=== PATIENT | male | born 1955 | race Caucasian/White ===

== ENCOUNTER 2016-09-24 14:32 | Inpatient (IN) ==
[2016-09-24] MEDS ORDERED: methylPREDNISolone 125 MG/2 ML VIAL IVP ONE (15:00)
[2016-09-24] MEDS ORDERED: Ipratropium/Albuterol Neb 3 ML IH ONE (15:00)
[2016-09-24] MEDS ORDERED: 0.9 % Sodium Chloride 1,000 ML IVC ONE (15:00)
--- NOTE | 2016-09-24 15:03 | Emergency Department Note ---
Disposition Clinical Impression: Acute exacerbation of chronic obstructive airways disease, Fngqr-7-[id number] deficiency, Lactic acidosis Disposition: Home, Self-Care Condition: Fair Time of Disposition: 17:50 SOB HPI - General Chief Complaint: ED Shortness of Breath/Dyspnea Stated Complaint: LEONEL Time Seen by Provider: 09/24/16 14:49 Source: patient Limitations: no limitations Nursing Notes Reviewed: Yes Vital Signs Reviewed: Yes - History of Present Illness 60-year-old male with history of alpha-1 antitrypsin, COPD, oxygen at night and BiPAP for MOE, patient reports shortness of breath, hemoptysis yesterday. Patient said shortness of breath so she with diaphoresis, chest pain, it is felt feverish though his only had subjective fevers at home. Patient states that he has had episodes of bronchitis like this in the past. He was seen a year ago with similar symptoms, admitted for pneumonia. Patient denies diuretics or CHF. Pt Subjective Complaint: shortness of breath Onset (ago): day(s) (1) Context: recent illness Severity: mild Improves with: nothing Worsens with: nothing Known history of: COPD, other (Alpha 1 antitrypsin) Associated symptoms: Reports: chest pain, pain with inspiration, fever, cough, wheezing, sputum production, diaphoresis. Denies: nausea/vomiting Treatment prior to arrival: none, oxygen Cough present: Yes Cough Description: Voluntary Cough Frequency: Intermittent Sputum production: Yes Sputum Amount: Scant Sputum Color: Clear - Related Data Home Medications Medication Instructions Recorded Confirmed Albuterol Sulfate [Proair 2 puff IH Q4H PRN 10/05/15 09/24/16 Respiclick] Miuea-4-Dqqswlvkmq Inhibitor 0 mg IV QWEEK 10/05/15 09/24/16 [Aralast Mdm Sr] Aspirin [Adult Low Dose Aspirin EC] 81 mg PO QAM 10/05/15 09/24/16 CloNIDine HCl [Clonidine HCl] 0.2 mg PO QPM 10/05/15 09/24/16 Furosemide [Lasix] 20 mg PO QAM 10/05/15 09/24/16 Insulin DETEMIR [Levemir] 54 unit SQ QPM 10/05/15 09/24/16 Ipratropium/Albuterol Neb [Duoneb] 3 ml IH Q6HR PRN 10/05/15 09/24/16 Labetalol [Trandate] 100 mg PO BID 10/05/15 09/24/16 Losartan/Hydrochlorothiazide 1 each PO QPM 10/05/15 09/24/16 [Hyzaar 100-12.5 Tablet] Nitroglycerin 0.3 mg SL AD PRN 10/05/15 09/24/16 Pravastatin Sodium [Pravachol] 80 mg PO QPM 10/05/15 09/24/16 Tiotropium [Spiriva] 18 mcg IH QAM 10/05/15 09/24/16 GlyBURIDE 5 mg PO DAILY 09/24/16 09/24/16 Sitagliptin Phos/Metformin HCl 1 each PO BID 09/24/16 09/24/16 [Janumet 50-1,000 mg Tablet] Previous Rx's Medication Instructions Recorded Budesonide/Formoterol 160/4.5 2 puff IH BIDR #1 inhaler 10/08/15 [Symbicort 160/4.5] PredniSONE 5 mg PO QAM #0 10/08/15 Albuterol Neb [Proventil Neb] 2.5 mg IH Q4HR PRN #1 vial.neb 11/14/15 Allergies Allergy/AdvReac Type Severity Reaction Status Date / Time morphine AdvReac Vomiting Verified 10/05/15 18:08 Review of Systems: A 14 point ROS was obtained and was negative except as per below or as documented in the HPI. Constitutional: Denies: fever, chills, weakness, weight change Eyes: Denies: eye pain, eye discharge, vision change ENT: Denies: ear pain, throat pain, hearing loss, epistaxis, congestion, Cardiovascular: Denies: chest pain, palpitations, dyspnea on exertion, edema, syncope Respiratory: cough, dyspnea, wheezes Denies: , hemoptysis, stridor Gastrointestinal: Denies: abdominal pain, nausea, vomiting. diarrhea, constipation, hematemesis, hematochezia Genitourinary: Denies: urgency, dysuria, frequency, hematuria Musculoskeletal: Denies: back pain, neck pain, arthralgia, myalgia Integumentary: Denies: rash, abrasion, lesions Neurological: Denies: headache, weakness, numbness, paresthesias, confusion, abnormal gait Psychiatric: Denies: anxiety, depression, suicidal thoughts, homicidal thoughts , Endocrine: Denies: fatigue Hematological/Lymphatic: Denies: easy bleeding, easy bruising Allergic/Immunologic: Denies: facial swelling, urticaria All systems ED: reviewed and negative except as stated. Past Medical History - Past Medical History Attestation: Yes The following information was validated with the patient. Source: patient Medical history: Reports: COPD, diabetes, hyperlipidemia, hypertension Surgical history: Reports: cancer surgery (Prostate cancer surgery 2001) Psychiatric history: Reports: no psych history - Social History Smoking Status: Former smoker Smokeless Tobacco Status: No Alcohol use: Reports: none Drug use: Reports: none Physical Exam General: diaphoretic in mild respiratory distress Head: NCAT, no lesions Eyes: sclera anicteric, conjunctiva normal, PERRLA bilaterally, EOMI Bilaterally Ears: normal inspection, external ear wnl Nose: nasal septum nondeviated, sinuses nontender Throat: good dentition, mucous membranes moist Neck: no lymphadenopathy, trachea midline no deviation, no JVD Resp: Coarse lung sounds present bilaterally, bilateral inspiratory expiratory wheezes and rales at the bases CV: RRR, normal S1 and S2, no m/g/r, Pulses +2 Rad, +2 DP/PT Abdomen: Soft, NTND, no hepatosplenomegaly, no hernias, Negative Rovsing's sign , Negative Weiss's sign Back: normal inspection, no tenderness to palpation, Negative CVA tenderness bilaterally Neuro: A&O3, CN II-XII grossly intact bilaterally, no motor or sensory deficits bilaterally, gait normal, GCS 15 [id number] Ext: normal inspection, symmetric Active and Passive ROM UE and LE bilaterally , no pedal edema bilaterally Psych: normal mood, normal affect Skin: No rashes, skin warm, dry, intact - General Limitations: no limitations General appearance: alert, in no apparent distress Course Course Narrative: 60-year-old male history of alpha trypsin, we have breathing treatments 23 Solu -Medrol, check basic labs with lactated blood cultures, troponin EKG was reviewed unremarkable no changes from previous EKG, planted his CT chest given hemoptysis, although patient does have any other risk factors for PE - Reevaluation(s) Reevaluation #1: Patient improved after DuoNeb's, still satting 93% with 2 L nasal cannula, lungs with some coarse wheezes bilaterally still, lactate 2.8, no evidence of infection at this time we will admit for COPD exacerbation, and trending of lactate, admitted to medicine service in stable condition Time: 17:49 Vital Signs Temperature 98.1 F 09/24/16 14:33 Pulse Rate 86 09/24/16 14:33 Respiratory Rate 20 09/24/16 14:33 Blood Pressure 185/98 09/24/16 14:33 O2 Sat by Pulse Oximetry 92 L 09/24/16 14:33 Temperature 98.3 F 09/24/16 18:27 Pulse Rate 73 09/24/16 17:56 Respiratory Rate 18 09/24/16 18:27 Blood Pressure 154/70 09/24/16 18:27 O2 Sat by Pulse Oximetry 95 09/24/16 17:56 Oxygen Delivery Oxygen Delivery Nasal Cannula Shortness of Breath/Dyspnea - MDM Narrative Medical decision making narrative: 60-year-old male with alpha-1 antitrypsin deficiency, COPD exacerbation, lactic acidosis, admitted to medicine service in stable condition. - Differential Diagnosis Likely: acute exacerbation of chronic obstructive airways disease, congestive heart failure, pulmonary embolism - Medical Records Medical records reviewed: Yes I reviewed the patient's medical records. - Lab Data Lab results reviewed: Yes I reviewed the patient's lab results. Result diagrams: 09/24/16 15:14 09/24/16 15:14 Lab Results 09/24/16 09/24/16 09/24/16 Range/Units 15:14 15:14 15:14 WBC 9.8 (4.3-11.1) K/mcL RBC 5.02 (4.19-5.50) M/mcL Hgb 15.3 (12.9-16.9) g/dL Hct 44.8 (37.5-50.1) % MCV 89.2 (83.0-100.0) fL MCH 30.5 (28.0-33.3) pg MCHC 34.2 (31.6-35.5) g/dL RDW 12.5 (11.5-14.5) % Plt Count 160 (140-400) K/mcL MPV 11.1 (9.4-12.4) fL Immature Gran % 0.9 (0-4) % Seg Neutrophils % 79.4 % Lymphocytes % 10.0 % Monocytes % 7.9 % Eosinophils % 1.5 % Basophils % 0.3 % Neutrophils # 7.8 (1.6-8.9) K/mcL Lymphocytes # 1.0 (0.6-4.6) K/mcL Monocytes # 0.8 (0.0-1.3) K/mcL Eosinophils # 0.2 (0.0-0.6) K/mcL Basophils # 0.0 (0.0-0.2) K/mcL PT 12.3 H (9.4-12.1) Seconds INR 1.1 APTT 30.0 (26.0-36.0) Seconds Sodium 141 (136-145) mEq/L Potassium 4.4 (3.5-4.5) mEq/L Chloride 104 (98-109) mEq/L Carbon Dioxide 23 (19-29) mEq/L BUN 11 (8-26) mg/dL Creatinine 1.18 (0.72-1.25) mg/dL Est GFR ( Amer) > 60 (> 60) Est GFR (Non-Af Amer) > 60 (> 60) BUN/Creatinine Ratio 9 (6-26) Glucose 231 H (70-99) mg/dL Calculated Osmolality 299 (280-300) Lactic Acid (0.5-2.2) mmol/L Calcium 10.4 (8.6-10.8) mg/dL Total Bilirubin 0.9 (0.2-1.2) mg/dL Direct Bilirubin 0.3 (0.0-0.5) mg/dL Indirect Bilirubin 0.6 (0.0-1.2) mg/dL AST 30 (5-34) Units/L ALT 33 (0-55) Units/L Alkaline Phosphatase 65 (38-126) Units/L Troponin I (0-0.03) ng/mL B-Natriuretic Peptide (0-100) pg/mL Serum Total Protein 7.5 (6.0-8.3) g/dL Albumin 4.1 (3.5-5.0) g/dL Globulin 3.4 (2.4-3.5) g/dL Albumin/Globulin Ratio 1.2 (1.1-2.2) 09/24/16 09/24/16 09/24/16 Range/Units 15:14 15:14 15:14 WBC (4.3-11.1) K/mcL RBC (4.19-5.50) M/mcL Hgb (12.9-16.9) g/dL Hct (37.5-50.1) % MCV (83.0-100.0) fL MCH (28.0-33.3) pg MCHC (31.6-35.5) g/dL RDW (11.5-14.5) % Plt Count (140-400) K/mcL MPV (9.4-12.4) fL Immature Gran % (0-4) % Seg Neutrophils % % Lymphocytes % % Monocytes % % Eosinophils % % Basophils % % Neutrophils # (1.6-8.9) K/mcL Lymphocytes # (0.6-4.6) K/mcL Monocytes # (0.0-1.3) K/mcL Eosinophils # (0.0-0.6) K/mcL Basophils # (0.0-0.2) K/mcL PT (9.4-12.1) Seconds INR APTT (26.0-36.0) Seconds Sodium (136-145) mEq/L Potassium (3.5-4.5) mEq/L Chloride (98-109) mEq/L Carbon Dioxide (19-29) mEq/L BUN (8-26) mg/dL Creatinine (0.72-1.25) mg/dL Est GFR ( Amer) (> 60) Est GFR (Non-Af Amer) (> 60) BUN/Creatinine Ratio (6-26) Glucose (70-99) mg/dL Calculated Osmolality (280-300) Lactic Acid 2.8 H (0.5-2.2) mmol/L Calcium (8.6-10.8) mg/dL Total Bilirubin (0.2-1.2) mg/dL Direct Bilirubin (0.0-0.5) mg/dL Indirect Bilirubin (0.0-1.2) mg/dL AST (5-34) Units/L ALT (0-55) Units/L Alkaline Phosphatase (38-126) Units/L Troponin I 0.01 (0-0.03) ng/mL B-Natriuretic Peptide 51 (0-100) pg/mL Serum Total Protein (6.0-8.3) g/dL Albumin (3.5-5.0) g/dL Globulin (2.4-3.5) g/dL Albumin/Globulin Ratio (1.1-2.2) - Radiology Data Radiology results reviewed: Yes I reviewed the patient's radiology results. Chest CTA 09/24/16 15:00 IMPRESSION: 1. No CT evidence of a pulmonary embolism. 2. No acute intrapulmonary findings. D/ / 09/24/2016 16:30:30 Paul Reeves MD / richy Interpreting Provider: Paul Reeves MD Chest X-Ray 09/24/16 15:00 IMPRESSION: No acute cardiopulmonary disease. D/ / 09/24/2016 16:19:08 Paul Reeves MD / richy Interpreting Provider: Paul Reeves MD - EKG Data EKG attestation: Yes I reviewed and interpreted this EKG. EKG shows normal: Reports: sinus rhythm (81 bpm CA 173 QRS 99 QTc 39) Rate: Reports: normal Rhythm: Reports: NSR Attestation Statement - Attestation Attestation: I examined this patient and my medical decision-making was reviewed with the LOANS CONSULTANT/PA/Advanced Practice Nurse/Resident Physician. I agree with the documented findings, disposition and treatment plan as described except to the extent set forth below. 60-year-old male presents as difficulty breathing. He has history of alpha-1 antitrypsin deficiency with isolated lung involvement. He has had increasing dyspnea over the past 24 hours. Yesterday he had mild hemoptysis. This productive cough. No fevers, chills or rigors. Does complain of mild orthopnea. No persistent chest pain. He used home nebulizers with minimal improvement. No abdominal pain. No extremity swelling. Pleasant male in no apparent distress. Tachypneic. Oropharynx is clear mucous membranes dry. Neck supple. Slightly diaphoretic. Chest coarse rhonchi in all lung crane with diminished breath sounds are Wheezes or crackles and regular. Abdomen soft non-distended, non-tender. Extremities warm and dry without asymmetric edema. EKG is negative for any acute process. Chest x-ray and CT of the chest are negative. He continued with moderate dyspnea and was slow to respond to the ED aerosols. He was given IV Solu-Medrol and will be admitted for further treatment.
[2016-09-24 15:29] LABS: Basophils % 0.3 %; Eosinophils # 0.2 K/mcL (0.0-0.6); Eosinophils % 1.5 %; Hematocrit 44.8 % (37.5-50.1); Hemoglobin 15.3 g/dL (12.9-16.9); Immature Granulocytes % 0.9 % (0-4); Mean Corpuscular HGB Conc 34.2 g/dL (31.6-35.5); Mean Corpuscular Hemoglobin 30.5 pg (28.0-33.3); Mean Corpuscular Volume 89.2 fL (83.0-100.0); Mean Platelet Volume 11.1 fL (9.4-12.4); Monocytes # 0.8 K/mcL (0.0-1.3); Monocytes % 7.9 %; Neutrophils # 7.8 K/mcL (1.6-8.9); Platelet Count 160 K/mcL (140-400); Red Blood Count 5.02 M/mcL (4.19-5.50); Red Cell Distribution Width 12.5 % (11.5-14.5); Segmented Neutrophils % 79.4 %
[2016-09-24 15:37] LABS: INR 1.1; Prothrombin Time 12.3 Seconds (9.4-12.1)
[2016-09-24 15:45] LABS: Alanine Aminotransferase 33 Units/L (0-55); Albumin 4.1 g/dL (3.5-5.0); Albumin/Globulin Ratio 1.2 (1.1-2.2); Alkaline Phosphatase 65 Units/L (38-126); Aspartate Amino Transferase 30 Units/L (5-34); BUN/Creatinine Ratio 9 (6-26); Bilirubin,Direct 0.3 mg/dL (0.0-0.5); Bilirubin,Indirect 0.6 mg/dL (0.0-1.2); Bilirubin,Total 0.9 mg/dL (0.2-1.2); Blood Urea Nitrogen 11 mg/dL (8-26); Calcium 10.4 mg/dL (8.6-10.8); Carbon Dioxide 23 mEq/L (19-29); Chloride 104 mEq/L (98-109); Globulin 3.4 g/dL (2.4-3.5); Glucose 231 mg/dL (70-99); Osmolality,Calculated 299 (280-300); Potassium 4.4 mEq/L (3.5-4.5); Sodium 141 mEq/L (136-145); Total Protein 7.5 g/dL (6.0-8.3); eGFR For African Americans > 60 (> 60); eGFR For Non-African Americans > 60 (> 60)
[2016-09-24] MEDS ORDERED: Ondansetron 4 MG/2 ML VIAL IVP PRN (19:34)
[2016-09-24] MEDS ORDERED: Naloxone 0.4 MG/ML INJ IVP PRN (19:34)
[2016-09-24] MEDS ORDERED: Dextrose Gel 15 GM PO PRN ×2 (19:35)
[2016-09-24] MEDS ORDERED: Ipratropium/Albuterol Neb 3 ML IH PRN (19:35)
[2016-09-24] MEDS ORDERED: D5% in Water 1,000 ML IV PRN (19:35)
[2016-09-24] MEDS ORDERED: *HR* Dextrose 50 % in Water (Syg) 50 ML SYRINGE IVP PRN (19:35)
--- NOTE | 2016-09-24 20:36 | Internal Med History&Physical ---
Date of Encounter: 09/24/16 Time of Encounter: 20:00 Assessment and Plan (1) Dyspnea Current visit: Yes Status: Acute -Likely secondary to COPD exacerbation -Improved at this time -continue O2 supplementation as needed Qualifiers: Dyspnea type: unspecified Qualified Code(s): R06.00 - Dyspnea, unspecified (2) Acute exacerbation of chronic obstructive pulmonary disease (COPD) Current visit: Yes Status: Acute Likely secondary to recent viral URI (exposure to sick contacts) Continue steroids and bronchodilators O2 supplementation as needed Bipap overnight Maintain O2 sat goal: 89-92% Will monitor off abx at this time Guaifenesin PRN cough No hemoptysis reported since admission, will continue to monitor (3) Hyperglycemia due to type 2 diabetes mellitus Current visit: Yes Status: Acute -Likely secondary to underlying illness -Will continue home Levemir dosing -hold oral antihyperglycemic agents at this time -Started Medium dose correctional sliding scale insulin algorithm as needed -Last HbA1C: 7.5 on 09/09/16 -continue to monitor fingerstick and blood glucose Qualifiers: Diabetes mellitus termite technician insulin use: with termite technician use Qualified Code( s): E11.65 - Type 2 diabetes mellitus with hyperglycemia; Z79.4 - skilled nursing ( current) use of insulin (4) Hypertension Current visit: Yes Status: Acute -Patient to receive his home BP medications this evening Continue to closely monitor blood pressure Qualifiers: Hypertension type: essential hypertension Qualified Code(s): I10 - Essential (primary) hypertension (5) CHF (congestive heart failure) Current visit: Yes Status: Chronic Not in acute exacerbation Continue home medications Qualifiers: Congestive heart failure type: unspecified congestive heart failure type Congestive heart failure chronicity: chronic Qualified Code(s): I50.9 - Heart failure, unspecified (6) DVT prophylaxis Current visit: Yes Status: Acute Heparin subcutaneous Internal Medicine - H&P: HPI Chief complaint: shortness of breath Admitted From: Home Plans for Post Hospital Care: Home History of present illness: Mr. Alfonso is a 60 year old male with past medical history of COPD on home oxygen , alpha-1 antitrypsin deficiency, diabetes, hypertension, CHF who presents to the ER for evaluation of worsening shortness of breath. Patient states earlier this week he was taking care of his great-grandson who was ill with an upper respiratory tract infection and ever since then he has been coughing. Has had worsening shortness of breath. Reports of using home oxygen intermittently and states for the last couple of days he is required constant use of his inhalers and oxygen. States today his shortness of breath did not get relieved with home nebulizer treatments due to which he came to the ER. Reports of productive cough with streaks of blood starting today. In the ER patient received a nebulizer treatment along with IV steroids which relieved his acute respiratory distress. At this time is resting comfortably in bed, saturating well on room air. He denies any headache, chest pain, shortness of breath, abdominal pain, nausea, vomiting, fever, or chills. Reports of using BiPAP at bedtime. Social Hx: Former smoker-quit 14 years ago (hx of 30+ years of smoking 1ppd) Past Med Surg Social Fam HX - Past Medical History Medical history: COPD, diabetes, hyperlipidemia, hypertension, other (alpha one antitrypsin deficiency) Psychiatric history: no psych history - Past Surgical History Surgical History: cancer surgery - Social History Smoking Status: Former smoker Smokeless Tobacco Status: No Alcohol use: none Drug use: none - Family History Mother Living Status: Hx Family Cardiac Disorders: Yes (NM at age 47) Father Living Status: Hx Family Cardiac Disorders: Yes (Heart failure) Hx Family Respiratory Disorders: Yes (COPD) Internal Medicine - H&P: Meds Albuterol Sulfate [Proair Respiclick] 2 puff IH Q4H PRN 10/05/15 [History] Tonhv-1-Wpnukrglfb Inhibitor [Aralast Nailhead Operator] 0 mg IV QWEEK 10/05/15 [History] Aspirin [Adult Low Dose Aspirin EC] 81 mg PO QAM 10/05/15 [History] CloNIDine HCl [Clonidine HCl] 0.2 mg PO QPM 10/05/15 [History] Furosemide [Lasix] 20 mg PO QAM 10/05/15 [History] Insulin DETEMIR [Levemir] 54 unit SQ QPM 10/05/15 [History] Ipratropium/Albuterol Neb [Duoneb] 3 ml IH Q6HR PRN 10/05/15 [History] Labetalol [Trandate] 100 mg PO BID 10/05/15 [History] Losartan/Hydrochlorothiazide [Hyzaar 100-12.5 Tablet] 1 each PO QPM 10/05/15 [ History] Nitroglycerin 0.3 mg SL AD PRN 10/05/15 [History] Pravastatin Sodium [Pravachol] 80 mg PO QPM 10/05/15 [History] Tiotropium [Spiriva] 18 mcg IH QAM 10/05/15 [History] Budesonide/Formoterol 160/4.5 [Symbicort 160/4.5] 2 puff IH BIDR #1 inhaler [Rx] PredniSONE 5 mg PO QAM #0 10/08/15 [Rx] Albuterol Neb [Proventil Neb] 2.5 mg IH Q4HR PRN #1 vial.neb 11/14/15 [Rx] GlyBURIDE 5 mg PO DAILY 09/24/16 [History] Sitagliptin Phos/Metformin HCl [Janumet 50-1,000 mg Tablet] 1 each PO BID [History] Allergies morphine Adverse Reaction (Verified 10/05/15 18:08) Vomiting All Systems PM: A 10-system review of systems was performed and is negative for pertinent findings except as documented above in the HPI. - Constitutional Constitutional: as per HPI - Constitutional Vitals: Temp Pulse Resp BP Pulse Ox 97.7 F 78 18 162/91 95 09/24/16 20:21 09/24/16 20:21 09/24/16 20:21 09/24/16 20:21 09/24/16 20:21 General appearance: Present: cooperative, A&O X 3, pleasant, no acute distress, obese, answers questions appropriately - Head Head exam: Present: atraumatic, normocephalic - Eye Eye exam: Present: PERRL, conjuntiva pink, sclera anicteric - Respiratory Respiratory exam: Absent: respiratory distress, rhonchi (equal air entry bilaterally, decreased breath sounds on bilateral bases), wheezes - Cardiovascular Cardiovascular exam: Present: RRR, +S1, +S2. Absent: diastolic murmur, gallop, rubs, systolic murmur - GI/Abdominal GI/Abdominal exam: Present: normal bowel sounds, soft, no peritoneal signs. Absent: distended, tenderness - Extremities Exam Extremities exam: Present: warm, radial pulses palpable and symetrical. Absent : calf tenderness, cyanotic, pedal edema - Neurological Exam Neurological exam: Present: alert, oriented X3, no focal deficits - Psychiatric Psychiatric exam: Present: normal affect, normal mood Internal Med - H&P Results - Labs CBC & Chem 7: 09/24/16 15:14 09/24/16 15:14
[2016-09-24] MEDS: Ipratropium/Albuterol Neb 3 ML IH SCH ×2 (20:44→23:33)
[2016-09-24] MEDS: Budesonide/Formoterol 160/4.5 MDI IH SCH (20:45)
[2016-09-24] MEDS ORDERED: GuaiFENesin Liq 200 MG/10 ML UDC PO PRN (20:57)
[2016-09-24] MEDS ORDERED: Insulin DETEMIR 100 UNIT/ML X5UNITS SQ SCH (21:00)
[2016-09-24] MEDS ORDERED: NON-FORMULARY MEDICATION 1 EACH EACH (Losartan/Hydrochlorothiazide [Hyzaar 100-12.5 Tablet PO SCH (21:00)
[2016-09-24] MEDS ORDERED: INSULIN DETEMIR 54 UNIT SQ SCH (21:00)
[2016-09-24] MEDS: Losartan/HCTZ 50-12.5 TABLET PO SCH (22:37)
[2016-09-24] MEDS: cloNIDine HCl 0.1 MG TABLET PO SCH (22:37)
[2016-09-24] MEDS: Insulin LISPRO 300 UNITS/3 ML VIAL SQ SCH (22:38)
[2016-09-24] MEDS: Insulin DETEMIR 100 UNIT/ML X5UNITS SQ SCH (22:38)
[2016-09-25] MEDS: *HR* Heparin 5,000 UNIT/ML VIAL SQ SCH ×3 (00:29→15:16)
[2016-09-25] MEDS: Ipratropium/Albuterol Neb 3 ML IH SCH ×6 (04:24→23:41)
[2016-09-25 04:29] LABS: Basophils % 0.1 %; Hematocrit 41.9 % (37.5-50.1); Immature Granulocytes % 0.8 % (0-4); Lymphocytes # 0.6 K/mcL (0.6-4.6); Lymphocytes % 6.3 %; Mean Corpuscular HGB Conc 33.4 g/dL (31.6-35.5); Mean Corpuscular Hemoglobin 29.6 pg (28.0-33.3); Mean Corpuscular Volume 88.6 fL (83.0-100.0); Mean Platelet Volume 10.9 fL (9.4-12.4); Monocytes # 0.3 K/mcL (0.0-1.3); Monocytes % 3.2 %; Neutrophils # 9.2 K/mcL (1.6-8.9); Platelet Count 162 K/mcL (140-400); Red Blood Count 4.73 M/mcL (4.19-5.50); Red Cell Distribution Width 12.4 % (11.5-14.5); Segmented Neutrophils % 89.6 %
[2016-09-25 04:42] LABS: BUN/Creatinine Ratio 12 (6-26); Blood Urea Nitrogen 13 mg/dL (8-26); Calcium 9.9 mg/dL (8.6-10.8); Carbon Dioxide 24 mEq/L (19-29); Chloride 103 mEq/L (98-109); Glucose 270 mg/dL (70-99); Magnesium 1.8 mg/dL (1.6-2.6); Osmolality,Calculated 298 (280-300); Phosphorous 3.5 mg/dL (2.3-4.7); Potassium 4.1 mEq/L (3.5-4.5); Sodium 139 mEq/L (136-145); eGFR For African Americans > 60 (> 60); eGFR For Non-African Americans > 60 (> 60)
[2016-09-25] MEDS: MethylPREDNISolone 40 MG/ML VIAL IVP SCH ×3 (06:37→15:17)
[2016-09-25] MEDS: Tiotropium 18 MCG inhalation IH SCH (07:49)
[2016-09-25] MEDS: Budesonide/Formoterol 160/4.5 MDI IH SCH ×2 (07:49→19:53)
[2016-09-25] MEDS: Insulin LISPRO 300 UNITS/3 ML VIAL SQ SCH ×4 (08:54→20:19)
[2016-09-25] MEDS: Insulin DETEMIR 100 UNIT/ML X5UNITS SQ SCH ×2 (08:54→20:19)
[2016-09-25] MEDS: Furosemide 20 MG TABLET PO SCH (08:54)
[2016-09-25] MEDS: Aspirin Enteric Coated 81 MG Tablet PO SCH (08:54)
[2016-09-25] MEDS: Losartan/HCTZ 50-12.5 TABLET PO SCH (17:09)
[2016-09-25] MEDS: cloNIDine HCl 0.1 MG TABLET PO SCH (17:09)
[2016-09-25] MEDS ORDERED: cloNIDine HCl 0.1 MG TABLET PO SCH (18:00)
--- NOTE | 2016-09-25 18:08 | Internal Med Progress Note ---
Date of Encounter: 09/25/16 Time of Encounter: 09:00 - Assessment and plan (1) Acute exacerbation of chronic obstructive pulmonary disease (COPD) Current Visit: Yes Status: Acute Assessment and plan: Continue with IV steroids, and inhaled bronchodilators. Add IV Levaquin for bronchitis. (2) Cegsm-3-ppyxqnzihjn deficiency Current Visit: Yes Status: Acute Assessment and plan: Follow-up with marine specialist outpatient. (3) DVT prophylaxis Current Visit: Yes Status: Acute Assessment and plan: Subcutaneous heparin (4) Hyperglycemia due to type 2 diabetes mellitus Current Visit: Yes Status: Acute Assessment and plan: Insulin sliding scale. Add long-acting insulin. Qualifiers: Diabetes mellitus equipment operator intermodal yard insulin use: with mcc use Qualified Code( s): E11.65 - Type 2 diabetes mellitus with hyperglycemia; Z79.4 - intermediate frame tender ( current) use of insulin (5) Hypertension Current Visit: Yes Status: Acute Assessment and plan: Resume oral meds. Qualifiers: Hypertension type: essential hypertension Qualified Code(s): I10 - Essential (primary) hypertension - Subjective Interval history: Patient reports moderate shortness of breath without chest pain, small amounts of green phlegm production It is the first time I am meeting this patient and therefore all problems are new to me - Constitutional Vitals: Temp Pulse Resp BP Pulse Ox 97.7 F 76 16 159/79 93 L 09/25/16 15:20 09/25/16 15:20 09/25/16 16:09 09/25/16 15:20 09/25/16 16:09 General appearance: Present: cooperative, A&O X 3, pleasant, no acute distress, obese, answers questions appropriately - Eye Eye exam: Present: PERRL, conjuntiva pink, sclera anicteric Pupils: Present: PERRL - Respiratory Respiratory exam: Absent: accessory muscle use, rales, rhonchi, wheezes Additional comments: Diminished breath sounds bilaterally - Cardiovascular Cardiovascular exam: Present: RRR, +S1, +S2. Absent: diastolic murmur, gallop, rubs, systolic murmur - GI/Abdominal GI/Abdominal exam: Present: normal bowel sounds, soft, no peritoneal signs. Absent: distended, tenderness - Extremities Exam Extremities exam: Present: warm, radial pulses palpable and symetrical. Absent : calf tenderness, cyanotic, pedal edema - Skin Skin exam: Present: dry, intact Internal Medicine: Result - Labs CBC & Chem 7: 09/25/16 03:58 09/25/16 03:58 Labs: Short CBC 09/25/16 Range/Units 03:58 WBC 10.2 (4.3-11.1) K/mcL Hgb 14.0 (12.9-16.9) g/dL Hct 41.9 (37.5-50.1) % Plt Count 162 (140-400) K/mcL Neutrophils # 9.2 H (1.6-8.9) K/mcL BMP 09/25/16 03:58 Sodium 139 Potassium 4.1 Chloride 103 Carbon Dioxide 24 BUN 13 Creatinine 1.11 Glucose 270 H Calcium 9.9 - ABG Interpretation ABG results: PT/INR, D-dimer PT 12.3 Seconds (9.4-12.1) H 09/24/16 15:14 Consult Discharge Plan - Plan Referrals: Mirlande Florez MD [Primary Care Provider] -
[2016-09-25] MEDS: Levofloxacin 750 MG/150 ML 750 MG/150 ML BAG IVPB SCH (18:41)
[2016-09-26] MEDS: *HR* Heparin 5,000 UNIT/ML VIAL SQ SCH ×4 (00:13→23:32)
[2016-09-26] MEDS: MethylPREDNISolone 40 MG/ML VIAL IVP SCH ×4 (00:13→23:32)
[2016-09-26] MEDS: Ipratropium/Albuterol Neb 3 ML IH SCH ×6 (04:01→23:42)
[2016-09-26 05:27] LABS: Basophils % 0.2 %; Hematocrit 42.3 % (37.5-50.1); Hemoglobin 14.3 g/dL (12.9-16.9); Immature Granulocytes % 1.2 % (0-4); Lymphocytes # 0.7 K/mcL (0.6-4.6); Lymphocytes % 5.6 %; Mean Corpuscular HGB Conc 33.8 g/dL (31.6-35.5); Mean Corpuscular Hemoglobin 30.2 pg (28.0-33.3); Mean Corpuscular Volume 89.4 fL (83.0-100.0); Mean Platelet Volume 11.2 fL (9.4-12.4); Monocytes # 0.5 K/mcL (0.0-1.3); Neutrophils # 11.7 K/mcL (1.6-8.9); Platelet Count 170 K/mcL (140-400); Red Blood Count 4.73 M/mcL (4.19-5.50); Red Cell Distribution Width 12.4 % (11.5-14.5)
[2016-09-26 05:47] LABS: BUN/Creatinine Ratio 17 (6-26); Blood Urea Nitrogen 20 mg/dL (8-26); Calcium 9.9 mg/dL (8.6-10.8); Carbon Dioxide 22 mEq/L (19-29); Chloride 101 mEq/L (98-109); Glucose 254 mg/dL (70-99); Osmolality,Calculated 297 (280-300); Potassium 4.2 mEq/L (3.5-4.5); Sodium 138 mEq/L (136-145); eGFR For African Americans > 60 (> 60); eGFR For Non-African Americans > 60 (> 60)
[2016-09-26] MEDS: Budesonide/Formoterol 160/4.5 MDI IH SCH ×2 (07:53→19:47)
[2016-09-26] MEDS: Tiotropium 18 MCG inhalation IH SCH (07:55)
--- NOTE | 2016-09-26 09:35 | Electrocardiograph Report ---
[facility] Test Date: 2016-09-24 Pat Name: Delvis Alfonso Department: 103 Room: 3B24 Gender: M Journeyman Molder: [facility] : 1955 Requested By: Regino Solorio Order Number: [id number] Reading MD: Austin Hernandez MD Measurements Intervals [place] Rate: 81 P: 75 MA: 173 QRS: 51 QRSD: 99 T: 75 QT: 351 QTc: 389 Interpretive Statements SINUS RHYTHM Electronically Signed On 09-26-16 09:33:24 EST by Austin Hernandez MD
[2016-09-26] MEDS: Insulin DETEMIR 100 UNIT/ML X5UNITS SQ SCH ×2 (09:40→20:35)
[2016-09-26] MEDS: Aspirin Enteric Coated 81 MG Tablet PO SCH (09:40)
[2016-09-26] MEDS: Insulin LISPRO 300 UNITS/3 ML VIAL SQ SCH ×4 (09:40→22:39)
[2016-09-26] MEDS: Furosemide 20 MG TABLET PO SCH (09:40)
[2016-09-26] MEDS: cloNIDine HCl 0.1 MG TABLET PO SCH (18:24)
[2016-09-26] MEDS: Losartan/HCTZ 50-12.5 TABLET PO SCH (18:24)
[2016-09-26] MEDS: Levofloxacin 750 MG/150 ML 750 MG/150 ML BAG IVPB SCH (19:00)
--- NOTE | 2016-09-26 19:27 | Internal Med Progress Note ---
Date of Encounter: 09/26/16 Time of Encounter: 17:00 - Assessment and plan (1) Acute exacerbation of chronic obstructive pulmonary disease (COPD) Current Visit: Yes Status: Acute Assessment and plan: Continue with IV steroids, and inhaled bronchodilators. Continue IV Levaquin for bronchitis. Flutter valve and incentive spirometry. (2) Jvppl-9-[id number] deficiency Current Visit: Yes Status: Acute Assessment and plan: We will consult pulmonary service. I have discussed the case with the retail performance coach who recommends continuing current care. (3) DVT prophylaxis Current Visit: Yes Status: Acute Assessment and plan: Subcutaneous heparin (4) Hyperglycemia due to type 2 diabetes mellitus Current Visit: Yes Status: Acute Assessment and plan: Insulin sliding scale. Increase Levemir insulin. More difficult to control due to IV steroids. Qualifiers: Diabetes mellitus snf insulin use: with joint terminal attack controller use Qualified Code( s): E11.65 - Type 2 diabetes mellitus with hyperglycemia; Z79.4 - exterminator helper termite ( current) use of insulin (5) Hypertension Current Visit: Yes Status: Acute Assessment and plan: Resume oral meds. Qualifiers: Hypertension type: essential hypertension Qualified Code(s): I10 - Essential (primary) hypertension - Subjective Interval history: Patient reports mild shortness of breath without chest pain, associated with moderate amounts of green phlegm production. He gets severely short of breath with ambulation. - Constitutional Vitals: Temp Pulse Resp BP Pulse Ox 97.8 F 73 14 184/89 94 L 09/26/16 18:45 09/26/16 18:45 09/26/16 18:45 09/26/16 18:45 09/26/16 18:45 General appearance: Present: cooperative, A&O X 3, pleasant, no acute distress, obese, answers questions appropriately - Eye Eye exam: Present: PERRL, conjuntiva pink, sclera anicteric Pupils: Present: PERRL - Respiratory Respiratory exam: Present: CTAB. Absent: accessory muscle use, rales, rhonchi, wheezes Additional comments: Decreased breath sounds bilaterally - Cardiovascular Cardiovascular exam: Present: RRR, +S1, +S2. Absent: diastolic murmur, gallop, rubs, systolic murmur - GI/Abdominal GI/Abdominal exam: Present: normal bowel sounds, soft, no peritoneal signs. Absent: distended, tenderness Internal Medicine: Result - Labs CBC & Chem 7: 09/26/16 03:36 09/26/16 03:36 - ABG Interpretation ABG results: PT/INR, D-dimer PT 12.3 Seconds (9.4-12.1) H 09/24/16 15:14 Consult Discharge Plan - Plan Referrals: Mirlande Florez MD [Primary Care Provider] - 10/03/16 11:15 am
[2016-09-27] MEDS: Ipratropium/Albuterol Neb 3 ML IH SCH ×3 (04:17→10:53)
[2016-09-27 04:44] LABS: Basophils % 0.2 %; Hematocrit 43.3 % (37.5-50.1); Hemoglobin 14.9 g/dL (12.9-16.9); Immature Granulocytes % 2.4 % (0-4); Lymphocytes # 0.8 K/mcL (0.6-4.6); Lymphocytes % 6.8 %; Mean Corpuscular HGB Conc 34.4 g/dL (31.6-35.5); Mean Corpuscular Hemoglobin 30.6 pg (28.0-33.3); Mean Corpuscular Volume 88.9 fL (83.0-100.0); Mean Platelet Volume 11.3 fL (9.4-12.4); Monocytes # 0.4 K/mcL (0.0-1.3); Monocytes % 3.2 %; Neutrophils # 10.6 K/mcL (1.6-8.9); Platelet Count 158 K/mcL (140-400); Red Blood Count 4.87 M/mcL (4.19-5.50); Red Cell Distribution Width 12.4 % (11.5-14.5); Segmented Neutrophils % 87.4 %
[2016-09-27 05:15] LABS: BUN/Creatinine Ratio 19 (6-26); Blood Urea Nitrogen 24 mg/dL (8-26); Calcium 9.7 mg/dL (8.6-10.8); Carbon Dioxide 26 mEq/L (19-29); Chloride 102 mEq/L (98-109); Glucose 285 mg/dL (70-99); Osmolality,Calculated 302 (280-300); Sodium 139 mEq/L (136-145); eGFR For African Americans > 60 (> 60); eGFR For Non-African Americans 59 (> 60)
[2016-09-27 07:20] VITALS: BP 128/67
[2016-09-27] MEDS: Tiotropium 18 MCG inhalation IH SCH (07:47)
[2016-09-27] MEDS: Budesonide/Formoterol 160/4.5 MDI IH SCH (07:47)
[2016-09-27] MEDS: *HR* Heparin 5,000 UNIT/ML VIAL SQ SCH (07:57)
[2016-09-27] MEDS: MethylPREDNISolone 40 MG/ML VIAL IVP SCH (07:57)
[2016-09-27] MEDS: Furosemide 20 MG TABLET PO SCH (07:57)
[2016-09-27] MEDS: Insulin LISPRO 300 UNITS/3 ML VIAL SQ SCH (07:57)
[2016-09-27] MEDS: Aspirin Enteric Coated 81 MG Tablet PO SCH (07:57)
[2016-09-27] MEDS: Insulin DETEMIR 100 UNIT/ML X5UNITS SQ SCH (07:59)
--- NOTE | 2016-09-27 09:16 | Pulmonology Consult Note ---
Date of Encounter: 09/27/16 Time of Encounter: 09:14 Assessment and Plan (1) Acute exacerbation of chronic obstructive pulmonary disease (COPD) Current Visit: Yes Status: Acute I agree with the care up to this point as provided by the primary service. Given his clinical presentation, I suspect the acute exacerbation was due to acute bronchitis. I recommend a 5 day course of levofloxacin. I recommend a transition to prednisone 40 mg by mouth daily. I would recommend a two-week taper of prednisone down to his baseline dose of prednisone of 5 mg per day. Otherwise, he is on an appropriate outpatient inhaler regimen. (2) Jzcul-0-rqjacmuspil deficiency Current Visit: Yes Status: Acute He is due for infusion tomorrow. Likely discharged today, so he can likely keep that appointment. (3) Hemoptysis Current Visit: Yes Status: Acute Likely related to bronchitis. No CT scan abnormalities concerning for a intraparenchymal pulmonary source of hemoptysis. This appears to have resolved. No further recommendations from a pulmonary standpoint. Okay to discharge. We will sign off. Please call with any questions. History of Present Illness Consult date: 09/26/16 Requesting physician: Aston Cuenca Reason for consult: COPD Chief complaint: dyspne History of present illness: 60-year-old white male medical history significant for COPD and alpha-1 antitrypsin deficiency. He was admitted to the hospital with a productive cough , progressive shortness of breath, and hemoptysis. The patient reports that the week preceding his admission, he had first noted a cough productive of sputum. In a few days he developed progressive shortness of breath. He then developed blood-streaked sputum, which prompted visit to the emergency department for evaluation of COPD exacerbation and possible pneumonia. Imaging of his chest was fairly unremarkable without significant infiltrates or source of hemoptysis. The patient has been treated with steroids , intravenous levofloxacin, and bronchodilators. He reports significant improvement since admission. He has a mild cough that continues to linger, but is no longer productive of sputum. No fevers or chills. No exertional chest pain, nausea/vomiting, or diaphoresis. Past Med Surg Social Fam HX - Past Medical History Medical history: COPD, diabetes, hyperlipidemia, hypertension, other (alpha one antitrypsin deficiency) Psychiatric history: no psych history - Past Surgical History Surgical History: cancer surgery - Social History Smoking Status: Former smoker Smokeless Tobacco Status: No Alcohol use: none Drug use: none - Family History Mother Living Status: Hx Family Cardiac Disorders: Yes (PR at age 47) Father Living Status: Hx Family Cardiac Disorders: Yes (Heart failure) Hx Family Respiratory Disorders: Yes (COPD) Medications and Allergies Albuterol Sulfate [Proair Respiclick] 2 puff IH Q4H PRN 10/05/15 [History] Lvhyk-5-Eqpiombcny Inhibitor [Aralast Green End Worker] 500 mg IV WE 10/05/15 [History] Aspirin [Adult Low Dose Aspirin EC] 81 mg PO QAM 10/05/15 [History] CloNIDine HCl [Clonidine HCl] 0.2 mg PO QPM 10/05/15 [History] Furosemide [Lasix] 20 mg PO QAM 10/05/15 [History] Insulin DETEMIR [Levemir] 27 unit SQ QPM 10/05/15 [History] Ipratropium/Albuterol Neb [Duoneb] 3 ml IH Q6HR PRN 10/05/15 [History] Labetalol [Trandate] 100 mg PO BID 10/05/15 [History] Losartan/Hydrochlorothiazide [Hyzaar 100-12.5 Tablet] 1 tab PO QPM 10/05/15 [ History] Pravastatin Sodium [Pravachol] 80 mg PO QPM 10/05/15 [History] Tiotropium [Spiriva] 18 mcg IH QAM 10/05/15 [History] Budesonide/Formoterol 160/4.5 [Symbicort 160/4.5] 2 puff IH BIDR #1 inhaler [Rx] PredniSONE 5 mg PO QAM #0 10/08/15 [Rx] GlyBURIDE 5 mg PO DAILY 09/24/16 [History] Sitagliptin Phos/Metformin HCl [Janumet 50-1,000 mg Tablet] 1 tab PO BID [History] Insulin DETEMIR [Levemir] 27 unit SQ QAM 09/25/16 [History] Allergies morphine Adverse Reaction (Verified 10/05/15 18:08) Vomiting All Systems: A 10-system review of systems was performed and is negative for pertinent findings except as documented above in the HPI. Physical Examination Vital Signs: Vital Signs, Last 4 Hours Temp Pulse Resp BP Pulse Ox 09/27/16 07:16 98.0 F 61 15 128/67 96 General appearance: no acute distress Eyes: nonicteric ENT: oropharynx moist Neck: supple, no lymphadenopathy Auscultation: bilateral: clear Cardiovascular: regular rate and rhythm Gastrointestinal: normoactive bowel sounds, soft, non-tender, non-distended Integumentary: normal Extremities: no cyanosis, no edema Musculoskeletal: no deformities normal mental status, non-focal exam mood appropriate, affect normal Results - Laboratory Findings CBC and BMP: 09/27/16 03:32 09/27/16 03:32 PT/INR, D-dimer PT 12.3 Seconds (9.4-12.1) H 09/24/16 15:14 Abnormal lab findings: Abnormal lab results WBC 12.1 K/mcL (4.3-11.1) H 09/27/16 03:32 Neutrophils # 10.6 K/mcL (1.6-8.9) H 09/27/16 03:32 PT 12.3 Seconds (9.4-12.1) H 09/24/16 15:14 Est GFR (Non-Af Amer) 59 (> 60) L 09/27/16 03:32 Glucose 285 mg/dL (70-99) H 09/27/16 03:32 POC Glucose 307 (58-89) H 09/27/16 07:19 Calculated Osmolality 302 (280-300) H 09/27/16 03:32 - Clinical Findings Intake & Output: Intake & Output 09/26/16 09/27/16 09/27/16 23:59 07:59 15:59 Weight 95.799 kg Consult Discharge Plan - Plan Referrals: Mirlande Florez MD [Primary Care Provider] - 10/03/16 11:15 am
[2016-09-27] MEDS ORDERED: Insulin LISPRO 300 UNITS/3 ML VIAL SQ SCH (12:06)
--- NOTE | 2016-09-27 12:07 | Discharge Summary ---
Date of Encounter: 09/27/16 Time of Encounter: 11:35 - Discharge Diagnosis (1) Acute exacerbation of chronic obstructive pulmonary disease (COPD) Priority: Primary Status: Acute (2) Dryxk-5-ktcbjcugrto deficiency Priority: Secondary Status: Acute (3) Hemoptysis Priority: Secondary Status: Acute (4) Hyperglycemia due to type 2 diabetes mellitus Priority: Secondary Status: Acute Qualifiers: Diabetes mellitus truck terminal manager insulin use: with truck terminal manager use Qualified Code( s): E11.65 - Type 2 diabetes mellitus with hyperglycemia; Z79.4 - skilled nursing ( current) use of insulin (5) Hypertension Priority: Secondary Status: Acute Qualifiers: Hypertension type: essential hypertension Qualified Code(s): I10 - Essential (primary) hypertension - Discharge Medications Prescriptions: Albuterol Sulfate [Proair Respiclick] 2 puff IH Q4H PRN #1 aer.pow.ba PRN Reason: Shortness Of Breath Budesonide/Formoterol 160/4.5 [Symbicort 160/4.5] 2 puff IH BIDR #1 inhaler Levofloxacin [Levaquin] 500 mg PO DAILY #4 tablet PredniSONE 10 mg PO DAILY 12 Days Home Medications: Mxxpb-6-Ynyftgycso Inhibitor [Aralast Etch Operator Semiconductor Wafers] 500 mg IV WE 10/05/15 [History] Aspirin [Adult Low Dose Aspirin EC] 81 mg PO QAM 10/05/15 [History] CloNIDine HCl [Clonidine HCl] 0.2 mg PO QPM 10/05/15 [History] Furosemide [Lasix] 20 mg PO QAM 10/05/15 [History] Insulin DETEMIR [Levemir] 27 unit SQ QPM 10/05/15 [History] Ipratropium/Albuterol Neb [Duoneb] 3 ml IH Q6HR PRN 10/05/15 [History] Labetalol [Trandate] 100 mg PO BID 10/05/15 [History] Losartan/Hydrochlorothiazide [Hyzaar 100-12.5 Tablet] 1 tab PO QPM 10/05/15 [ History] Pravastatin Sodium [Pravachol] 80 mg PO QPM 10/05/15 [History] Tiotropium [Spiriva] 18 mcg IH QAM 10/05/15 [History] PredniSONE 5 mg PO QAM #0 10/08/15 [Rx] GlyBURIDE 5 mg PO DAILY 09/24/16 [History] Sitagliptin Phos/Metformin HCl [Janumet 50-1,000 mg Tablet] 1 tab PO BID [History] Insulin DETEMIR [Levemir] 27 unit SQ QAM 09/25/16 [History] Albuterol Sulfate [Proair Respiclick] 2 puff IH Q4H PRN #1 aer.pow.ba 09/27/16 [ Rx] Budesonide/Formoterol 160/4.5 [Symbicort 160/4.5] 2 puff IH BIDR #1 inhaler [Rx] Levofloxacin [Levaquin] 500 mg PO DAILY #4 tablet 09/27/16 [Rx] PredniSONE 10 mg PO DAILY 12 Days 09/27/16 [Rx] Allergies/Adverse Reactions: Allergies morphine Adverse Reaction (Verified 10/05/15 18:08) Vomiting Date of admission: 09/26/16 18:19 Primary care physician: Mirlande Florez Consults: 09/26/16 18:20 Consult to Pulmonology [CONS] Routine Consulting Provider: [facility] Reason for Consult: COPD exacerbation Time Notified: 16:30 Call Completed: Yes Discharging clinician: Jessica Parker Anticipated date of discharge: 09/27/16 - Patient Status Disposition: Home, Self-Care Condition: Good Functional capacity at discharge: independent ambulation Overall status at discharge: patient is progressing back to baseline - Discharge Instructions Instructions: Chronic Obstructive Pulmonary Disease (DC) Follow Up With: Mirlande Florez MD [Primary Care Provider] - 10/03/16 11:15 am - Diet and Activity Activity: increase activity as tolerated Diet: diabetic diet, low fat, low cholesterol, low salt diet Hospital course: Mr. Alfonso is a 60 year old male with history of alpha-1 antitrypsin deficiency, COPD who was admitted here for Acute exacerbation of COPD with acute bronchitis. He was treated with intravenous steroids, scheduled nebulized bronchodilators, and intravenous levofloxacin. On presentation he also had hemoptysis. His symptoms have since improved. He is feeling much better now. He uses 2 L home oxygen as needed. He will need to continue to use oxygen supplementation after discharge. He was evaluated by pulmonology and recommended a 2 week course of tapering steroids, 5 day course of levofloxacin.. He will complete this treatment regimen at home. He receives alpha-1 proteinase inhibitor infusions weekly. He also has diabetes and his blood sugars were elevated. Due to use of intravenous steroids. This should improve as patient tapers his steroid dosage. He is advised to continue to monitor his blood sugars and adjust insulin regimen as per his primary care provider's recommendations. He is stable to be discharged home and will follow up with his primary care provider and fusing line inspector after discharge. - Time Spent with Patient Total time spent providing and/or coordinating discharge services: Greater than 30 minutes (35 min) - Constitutional Vitals: Temp Pulse Resp BP Pulse Ox 98.0 F 61 15 128/67 96 09/27/16 07:16 09/27/16 07:16 09/27/16 07:16 09/27/16 07:16 09/27/16 07:16 General appearance: Present: cooperative, A&O X 3, pleasant, no acute distress, obese, answers questions appropriately - Respiratory Respiratory exam: Present: decreased breath sounds (Diminished bilaterally), prolonged expiratory phase, wheezes. Absent: accessory muscle use, rales, rhonchi - Cardiovascular Cardiovascular exam: Present: RRR, +S1, +S2. Absent: diastolic murmur, gallop, rubs, systolic murmur - GI/Abdominal GI/Abdominal exam: Present: normal bowel sounds, soft, no peritoneal signs. Absent: distended, tenderness - Extremities Exam Extremities exam: Present: warm, radial pulses palpable and symetrical. Absent : calf tenderness, cyanotic, pedal edema - Neurological Exam Neurological exam: Present: CN II-XII intact, oriented X3, no focal deficits. Absent: facial droop, speech deficit - Attending Attestation This document has been at least partially created by [employer] recognition technology by Dr. Parker. Errors in grammar, wording or other phrases may exist. If errors are found after the documentation is signed, they will be addressed individually in the addendum section of this document when appropriate.
== END 2016-09-27 13:07 | disposition home or self-care (01) | DRG 192 ==
LOC: 3BNU 14:32 → EMEROO 14:32 → SUATTDRO 18:06 → 3BNU 18:29 → SUATTDRO 09-26 18:19
PROVIDERS: ADMIT Internal Medicine; ATTEND Internal Medicine

== ENCOUNTER 2020-12-02 18:36 | Observation (INO) ==
[2020-12-02] MEDS ORDERED: 0.9 % Sodium Chloride 1,000 ML IVC ONE (18:54)
[2020-12-02 19:16] LABS: VBG HCO3 27 mEq/L (21-27); VBG PCO2 44 mmHg (41-51); VBG PH 7.39 pH Units (7.32-7.42); VBG PO2 52 mmHg (25-50)
[2020-12-02 19:29] LABS: INR 1.1; Prothrombin Time 13.1 Seconds (9.4-12.1)
[2020-12-02 19:32] LABS: Activated Partial Thrombo Time 25.5 Seconds (26.0-36.0)
[2020-12-02 19:35] LABS: Basophils % 0.3 %; Eosinophils % 0.3 %; Hematocrit 47.4 % (37.5-50.1); Hemoglobin 15.9 g/dL (12.9-16.9); Immature Granulocytes % 0.9 % (0-4); Lymphocytes # 1.5 K/mcL (0.6-4.6); Lymphocytes % 17.4 %; Mean Corpuscular HGB Conc 33.5 g/dL (31.6-35.5); Mean Corpuscular Hemoglobin 30.1 pg (28.0-33.3); Mean Corpuscular Volume 89.8 fL (83.0-100.0); Mean Platelet Volume 11.6 fL (9.4-12.4); Monocytes # 0.7 K/mcL (0.0-1.3); Monocytes % 7.9 %; Neutrophils # 6.3 K/mcL (1.6-8.9); Platelet Count 206 K/mcL (140-400); Red Blood Count 5.28 M/mcL (4.19-5.50); Red Cell Distribution Width 13.4 % (11.5-14.5); Segmented Neutrophils % 73.2 %; White Blood Count 8.6 K/mcL (4.3-11.1)
[2020-12-02 19:47] LABS: BUN/Creatinine Ratio 15 (6-26); Blood Urea Nitrogen 16 mg/dL (8-23); Calcium 10.2 mg/dL (8.6-10.3); Carbon Dioxide 24 mEq/L (23-29); Chloride 99 mEq/L (98-107); Glucose 281 mg/dL (70-105); Magnesium 1.9 mg/dL (1.6-2.6); Osmolality,Calculated 289 (280-300); Potassium 3.9 mEq/L (3.5-5.1); Sodium 134 mEq/L (136-145); Troponin I < 0.03 ng/mL (< 0.04); eGFR For African Americans > 60 (> 60); eGFR For Non-African Americans > 60 (> 60)
[2020-12-02] MEDS: DilTIAZem 50 MG/50 ML IV.SOLN IVC SCH (19:47)
[2020-12-02 19:56] LABS: Thyroid Stimulating Hormone 1.471 mcIU/mL (0.340-5.600)
[2020-12-02] MEDS ORDERED: Ondansetron 4 MG/2 ML VIAL IVP PRN (22:08)
[2020-12-02] MEDS ORDERED: Naloxone 0.4 MG/ML INJ IVP PRN (22:08)
[2020-12-02] MEDS ORDERED: Aspirin 81 MG TAB.CHEW PO ONE (22:18)
[2020-12-02] MEDS ORDERED: *HR* Dextrose 50 % in Water (Vial) 50 ML VIAL IVP PRN (23:39)
[2020-12-02] MEDS ORDERED: D5% in Water 1,000 ML IVC PRN (23:39)
[2020-12-02] MEDS ORDERED: Dextrose Gel 15 GM/37.5 ML TUBE PO PRN ×2 (23:39)
[2020-12-02] MEDS: Insulin LISPRO 300 UNITS/3 ML VIAL SUBQ SCH (23:55)
[2020-12-03] MEDS ORDERED: Perflutren Lipid Microsphere 1.3 ML in 0.9 % Sodium Chloride 8.7 ML IVP PRN ×2 (02:17→15:45)
[2020-12-03] MEDS: DilTIAZem 50 MG/50 ML IV.SOLN IVC SCH ×2 (02:46→08:24)
[2020-12-03 03:23] LABS: Hematocrit 38.5 % (37.5-50.1); Mean Corpuscular HGB Conc 32.5 g/dL (31.6-35.5); Mean Corpuscular Hemoglobin 29.4 pg (28.0-33.3); Mean Corpuscular Volume 90.6 fL (83.0-100.0); Mean Platelet Volume 10.9 fL (9.4-12.4); Platelet Count 154 K/mcL (140-400); Red Blood Count 4.25 M/mcL (4.19-5.50); Red Cell Distribution Width 13.4 % (11.5-14.5); White Blood Count 5.9 K/mcL (4.3-11.1)
[2020-12-03 03:24] LABS: Hemoglobin 12.5 g/dL (12.9-16.9)
[2020-12-03 03:29] LABS: Estimated Average Glucose 269 mg/dl
[2020-12-03 03:48] LABS: BUN/Creatinine Ratio 15 (6-26); Blood Urea Nitrogen 17 mg/dL (8-23); Calcium 8.9 mg/dL (8.6-10.3); Carbon Dioxide 28 mEq/L (23-29); Chloride 102 mEq/L (98-107); Glucose 315 mg/dL (70-105); Osmolality,Calculated 296 (280-300); Potassium 3.7 mEq/L (3.5-5.1); Sodium 136 mEq/L (136-145); eGFR For African Americans > 60 (> 60); eGFR For Non-African Americans > 60 (> 60)
[2020-12-03] MEDS: *HR* Heparin 5,000 UNIT/ML VIAL SQ SCH ×3 (06:00→22:10)
[2020-12-03] MEDS ORDERED: Insulin LISPRO 300 UNITS/3 ML VIAL SUBQ ONE (06:12)
[2020-12-03] MEDS: Insulin LISPRO 300 UNITS/3 ML VIAL SUBQ SCH ×3 (07:59→16:29)
[2020-12-03] MEDS: carvediloL 25 MG TABLET PO SCH ×2 (08:20→16:26)
[2020-12-03] MEDS: Insulin DETEMIR 100 UNIT/ML X5UNITS SUBQ SCH (11:03)
[2020-12-03] MEDS ORDERED: amLODIPine 5 MG TABLET PO SCH (16:10)
[2020-12-03] MEDS ORDERED: NON-FORMULARY MEDICATION 1 EACH EACH (Losartan/Hydrochlorothiazide [Hyzaar 100-12.5 Tablet PO SCH (16:11)
[2020-12-03] MEDS ORDERED: *HR* Labetalol 20 MG/4 ML SYRINGE IVP ONE (16:11)
[2020-12-03] MEDS ORDERED: hydroCHLOROthiazide 25 MG TABLET PO SCH (16:15)
[2020-12-03] MEDS: cloNIDine HCL 0.1 MG TABLET PO SCH (16:27)
[2020-12-03] MEDS: DilTIAZem CD (24hr) 180 MG CAP.ER.24H PO SCH (18:27)
[2020-12-03] MEDS ORDERED: cloNIDine HCL 0.1 MG TABLET PO SCH (20:00)
[2020-12-04] MEDS: *HR* Heparin 5,000 UNIT/ML VIAL SQ SCH (06:56)
[2020-12-04] MEDS: Insulin LISPRO 300 UNITS/3 ML VIAL SUBQ SCH ×2 (08:28→12:36)
[2020-12-04] MEDS: DilTIAZem CD (24hr) 180 MG CAP.ER.24H PO SCH (08:47)
[2020-12-04] MEDS: carvediloL 25 MG TABLET PO SCH (08:47)
[2020-12-04] MEDS: Insulin DETEMIR 100 UNIT/ML X5UNITS SUBQ SCH (08:47)
[2020-12-04] MEDS: cloNIDine HCL 0.1 MG TABLET PO SCH (08:47)
[2020-12-04 11:36] VITALS: BP 173/88
[2020-12-04] MEDS ORDERED: cloNIDine HCL 0.1 MG TABLET PO SCH (18:00)
== END 2020-12-04 13:09 | disposition home or self-care (01) ==
LOC: EMEROOARM 18:36 → 2ANU 18:36 → SUATTDRO 21:44 → 2ANU 22:36
PROVIDERS: ADMIT Internal Medicine; ATTEND Internal Medicine

== ENCOUNTER 2020-12-28 00:51 | Inpatient (IN) ==
[2020-12-28] MEDS ORDERED: Nitroglycerin 0.4 MG TAB.SUBL SL PRN (01:06)
[2020-12-28 01:44] LABS: Basophils % 0.3 %; Eosinophils # 0.1 K/mcL (0.0-0.6); Eosinophils % 1.2 %; Hematocrit 36.4 % (37.5-50.1); Hemoglobin 11.7 g/dL (12.9-16.9); Immature Granulocytes % 0.7 % (0-4); Lymphocytes % 16.9 %; Mean Corpuscular HGB Conc 32.1 g/dL (31.6-35.5); Mean Corpuscular Hemoglobin 29.9 pg (28.0-33.3); Mean Corpuscular Volume 93.1 fL (83.0-100.0); Mean Platelet Volume 10.2 fL (9.4-12.4); Monocytes # 0.6 K/mcL (0.0-1.3); Monocytes % 9.9 %; Neutrophils # 4.3 K/mcL (1.6-8.9); Platelet Count 134 K/mcL (140-400); Red Blood Count 3.91 M/mcL (4.19-5.50); Red Cell Distribution Width 13.5 % (11.5-14.5); White Blood Count 6.1 K/mcL (4.3-11.1)
[2020-12-28 02:04] LABS: BUN/Creatinine Ratio 14 (6-26); Blood Urea Nitrogen 15 mg/dL (8-23); Calcium 9.1 mg/dL (8.6-10.3); Carbon Dioxide 26 mEq/L (23-29); Chloride 105 mEq/L (98-107); Glucose 179 mg/dL (70-105); Osmolality,Calculated 293 (280-300); Sodium 139 mEq/L (136-145); Troponin I 0.03 ng/mL (< 0.04); eGFR For African Americans > 60 (> 60); eGFR For Non-African Americans > 60 (> 60)
[2020-12-28] MEDS ORDERED: Ipratropium/Albuterol Neb 3 ML IH PRN (04:12)
[2020-12-28] MEDS ORDERED: *HR* Labetalol 20 MG/4 ML SYRINGE IVP ONE (04:13)
[2020-12-28] MEDS ORDERED: Ondansetron 4 MG/2 ML VIAL IVP PRN (04:14)
[2020-12-28] MEDS ORDERED: Acetaminophen 325 MG TABLET PO PRN (04:14)
[2020-12-28] MEDS ORDERED: Naloxone 0.4 MG/ML INJ IVP PRN (04:14)
[2020-12-28] MEDS ORDERED: D5% in Water 1,000 ML IVC PRN (04:21)
[2020-12-28] MEDS ORDERED: *HR* Dextrose 50 % in Water (Vial) 50 ML VIAL IVP PRN (04:21)
[2020-12-28] MEDS ORDERED: Dextrose Gel 15 GM/37.5 ML TUBE PO PRN ×2 (04:21)
[2020-12-28] MEDS ORDERED: Morphine Sulfate 2 MG/ML SYRINGE IVP PRN (04:39)
[2020-12-28] MEDS: *HR* Heparin 5,000 UNIT/ML VIAL SQ SCH ×2 (05:24→17:06)
[2020-12-28] MEDS: cloNIDine HCL 0.1 MG TABLET PO SCH ×2 (05:25→17:02)
[2020-12-28] MEDS ORDERED: Regadenoson 0.4 MG/5 ML SYRINGE IVP ONE (05:48)
[2020-12-28] MEDS: Budesonide/Formoterol 160/4.5 1 PUFF INH IH SCH ×2 (08:04→20:34)
[2020-12-28] MEDS: Insulin LISPRO 300 UNITS/3 ML VIAL SUBQ SCH ×4 (08:25→20:32)
[2020-12-28] MEDS ORDERED: cloNIDine HCL 0.1 MG TABLET PO SCH (09:00)
[2020-12-28] MEDS: carvediloL 25 MG TABLET PO SCH (10:21)
[2020-12-28] MEDS ORDERED: hydrALAZINE 25 MG TABLET PO ONE (10:36)
[2020-12-28] MEDS: Aspirin 81 MG TAB.CHEW PO SCH (10:43)
[2020-12-28] MEDS: Furosemide 20 MG TABLET PO SCH (10:43)
[2020-12-28] MEDS: DilTIAZem CD (24hr) 120 MG CAP.ER.24H PO SCH (10:43)
[2020-12-28] MEDS: Losartan/HCTZ 50-12.5 TABLET PO SCH (12:59)
[2020-12-28] MEDS: hydrALAZINE 25 MG TABLET PO SCH ×2 (16:05→23:14)
[2020-12-28] MEDS ORDERED: NON-FORMULARY MEDICATION 1 EACH EACH (Losartan/Hydrochlorothiazide [Hyzaar 100-12.5 Tablet PO SCH (18:00)
[2020-12-28] MEDS: Insulin DETEMIR 100 UNIT/ML X5UNITS SUBQ SCH (20:32)
[2020-12-29] MEDS: *HR* Heparin 5,000 UNIT/ML VIAL SQ SCH ×2 (05:14→17:10)
[2020-12-29 06:26] LABS: Chol/HDL Ratio 4.6 (0-4.9)
[2020-12-29] MEDS ORDERED: Regadenoson 0.4 MG/5 ML SYRINGE IVP ONE ×2 (07:06→10:17)
[2020-12-29] MEDS: Insulin LISPRO 300 UNITS/3 ML VIAL SUBQ SCH ×4 (07:18→20:07)
[2020-12-29] MEDS: hydrALAZINE 25 MG TABLET PO SCH ×3 (07:25→22:24)
[2020-12-29] MEDS: cloNIDine HCL 0.1 MG TABLET PO SCH ×2 (07:25→17:09)
[2020-12-29] MEDS: Aspirin 81 MG TAB.CHEW PO SCH (07:25)
[2020-12-29] MEDS: Losartan/HCTZ 50-12.5 TABLET PO SCH (07:25)
[2020-12-29] MEDS: Furosemide 20 MG TABLET PO SCH (07:26)
[2020-12-29] MEDS: Budesonide/Formoterol 160/4.5 1 PUFF INH IH SCH ×3 (07:52→19:40)
[2020-12-29] MEDS ORDERED: amLODIPine 5 MG TABLET PO SCH (09:00)
[2020-12-29] MEDS: predniSONE 5 MG TABLET PO SCH (10:14)
[2020-12-29] MEDS: DilTIAZem CD (24hr) 120 MG CAP.ER.24H PO SCH ×2 (10:14→13:22)
[2020-12-29] MEDS: carvediloL 25 MG TABLET PO SCH (13:21)
[2020-12-29] MEDS ORDERED: DilTIAZem CD (24hr) 240 MG CAP.ER.24H PO ONE (14:45)
[2020-12-29] MEDS ORDERED: *HR* Adenosine 6 MG/2 ML VIAL IVP ONE ×5 (15:25→15:41)
[2020-12-29] MEDS ORDERED: 0.9 % Sodium Chloride 1,000 ML ONE (19:41)
[2020-12-29] MEDS ORDERED: 0.9 % Sodium Chloride 500 ML IVC ONE (19:42)
[2020-12-29] MEDS: Insulin DETEMIR 100 UNIT/ML X5UNITS SUBQ SCH (20:08)
[2020-12-29] MEDS ORDERED: Albumin 25% 25gram/100mL 25 GM/100 ML IV.SOLN IVPB ONE (21:28)
[2020-12-30] MEDS: *HR* Heparin 5,000 UNIT/ML VIAL SQ SCH ×2 (05:37→17:50)
[2020-12-30] MEDS: Budesonide/Formoterol 160/4.5 1 PUFF INH IH SCH ×2 (08:07→20:42)
[2020-12-30 08:30] LABS: Basophils % 0.4 %; Eosinophils # 0.1 K/mcL (0.0-0.6); Eosinophils % 1.4 %; Hematocrit 42.7 % (37.5-50.1); Immature Granulocytes % 0.4 % (0-4); Lymphocytes # 1.8 K/mcL (0.6-4.6); Lymphocytes % 23.6 %; Mean Corpuscular Hemoglobin 30.5 pg (28.0-33.3); Mean Corpuscular Volume 92.2 fL (83.0-100.0); Mean Platelet Volume 10.1 fL (9.4-12.4); Monocytes # 0.8 K/mcL (0.0-1.3); Monocytes % 10.3 %; Platelet Count 212 K/mcL (140-400); Red Blood Count 4.63 M/mcL (4.19-5.50); Red Cell Distribution Width 13.7 % (11.5-14.5); Segmented Neutrophils % 63.9 %; White Blood Count 7.8 K/mcL (4.3-11.1)
[2020-12-30 08:48] LABS: Calcium 10.3 mg/dL (8.6-10.3); Hemoglobin 14.1 g/dL (12.9-16.9); Potassium 3.8 mEq/L (3.5-5.1)
[2020-12-30] MEDS ORDERED: DilTIAZem CD (24hr) 180 MG CAP.ER.24H PO SCH (09:00)
[2020-12-30] MEDS: 0.9 % Sodium Chloride 1,000 ML IVC SCH ×2 (09:27→22:36)
[2020-12-30] MEDS: Insulin LISPRO 300 UNITS/3 ML VIAL SUBQ SCH ×4 (09:28→22:34)
[2020-12-30] MEDS: predniSONE 5 MG TABLET PO SCH (11:13)
[2020-12-30] MEDS: Aspirin 81 MG TAB.CHEW PO SCH (11:13)
[2020-12-30] MEDS: cloNIDine HCL 0.1 MG TABLET PO SCH ×2 (17:50→22:56)
[2020-12-30] MEDS: hydrALAZINE 25 MG TABLET PO SCH ×3 (17:50→23:22)
[2020-12-30] MEDS: Insulin DETEMIR 100 UNIT/ML X5UNITS SUBQ SCH (22:36)
[2020-12-30] MEDS: carvediloL 25 MG TABLET PO SCH (22:55)
[2020-12-30] MEDS: Furosemide 20 MG TABLET PO SCH (22:56)
[2020-12-30] MEDS: Losartan/HCTZ 50-12.5 TABLET PO SCH (22:56)
[2020-12-31 02:26] LABS: Basophils % 0.2 %; Eosinophils # 0.1 K/mcL (0.0-0.6); Eosinophils % 1.1 %; Hematocrit 36.6 % (37.5-50.1); Immature Granulocytes % 0.4 % (0-4); Lymphocytes # 0.9 K/mcL (0.6-4.6); Lymphocytes % 19.9 %; Mean Corpuscular HGB Conc 32.8 g/dL (31.6-35.5); Mean Corpuscular Hemoglobin 29.8 pg (28.0-33.3); Mean Corpuscular Volume 90.8 fL (83.0-100.0); Mean Platelet Volume 10.7 fL (9.4-12.4); Monocytes # 0.5 K/mcL (0.0-1.3); Neutrophils # 3.1 K/mcL (1.6-8.9); Platelet Count 134 K/mcL (140-400); Red Blood Count 4.03 M/mcL (4.19-5.50); Red Cell Distribution Width 13.6 % (11.5-14.5); Segmented Neutrophils % 67.4 %; White Blood Count 4.6 K/mcL (4.3-11.1)
[2020-12-31 02:48] LABS: % Iron Saturation 21 % (20-55); BUN/Creatinine Ratio 22 (6-26); Blood Urea Nitrogen 29 mg/dL (8-23); Calcium 9.5 mg/dL (8.6-10.3); Carbon Dioxide 25 mEq/L (23-29); Chloride 105 mEq/L (98-107); Glucose 227 mg/dL (70-105); Iron 71 mcg/dL (65-175); Osmolality,Calculated 299 (280-300); Phosphorous 3.2 mg/dL (2.7-4.5); Potassium 3.9 mEq/L (3.5-5.1); Sodium 138 mEq/L (136-145); Transferrin 246 mg/dL (203-362); eGFR For African Americans > 60 (> 60); eGFR For Non-African Americans 55 (> 60)
[2020-12-31 03:00] LABS: Ferritin 71 ng/mL (20-250)
[2020-12-31 03:04] LABS: Folate 6.4 ng/mL (3.0-16.0)
[2020-12-31] MEDS: *HR* Heparin 5,000 UNIT/ML VIAL SQ SCH ×2 (05:36→16:28)
[2020-12-31] MEDS: Budesonide/Formoterol 160/4.5 1 PUFF INH IH SCH ×2 (07:27→21:58)
[2020-12-31] MEDS: Insulin LISPRO 300 UNITS/3 ML VIAL SUBQ SCH ×4 (07:56→20:55)
[2020-12-31] MEDS: Aspirin 81 MG TAB.CHEW PO SCH (08:06)
[2020-12-31] MEDS: cloNIDine HCL 0.1 MG TABLET PO SCH ×2 (08:07→16:28)
[2020-12-31] MEDS: hydrALAZINE 25 MG TABLET PO SCH ×2 (08:07→15:00)
[2020-12-31] MEDS: predniSONE 5 MG TABLET PO SCH (08:07)
[2020-12-31] MEDS ORDERED: Cyanocobalamin (B-12) 1,000 MCG/ML VIAL SQ ONE (08:43)
[2020-12-31] MEDS: carvediloL 25 MG TABLET PO SCH ×2 (11:30→16:28)
[2020-12-31] MEDS ORDERED: *HR* FentaNYL (PF) 100 MCG/2 ML VIAL ONE (11:58)
[2020-12-31] MEDS ORDERED: *HR* Midazolam HCl 2 MG/2 ML VIAL ONE (11:58)
[2020-12-31] MEDS ORDERED: *HR* Ticagrelor 90 MG TABLET ONE (12:37)
[2020-12-31] MEDS ORDERED: *HR* Heparin 10,000 UNIT/10 ML VIAL ONE (12:43)
[2020-12-31] MEDS ORDERED: Heparin 1,000 UNITS/500 mL 500 ML ONE (12:46)
[2020-12-31] MEDS ORDERED: ISOVUE-370 200 ML INFUS..BTL ONE (13:05)
[2020-12-31] MEDS: 0.9 % Sodium Chloride 1,000 ML IVC SCH (14:56)
[2020-12-31] MEDS ORDERED: carvediloL 25 MG TABLET PO SCH (17:00)
[2020-12-31] MEDS ORDERED: Perflutren Lipid Microsphere 1.3 ML in 0.9 % Sodium Chloride 8.7 ML IVP PRN (17:51)
[2020-12-31] MEDS: Insulin DETEMIR 100 UNIT/ML X5UNITS SUBQ SCH (20:56)
[2020-12-31] MEDS ORDERED: *HR* Ticagrelor 90 MG TABLET PO SCH (21:00)
[2021-01-01] MEDS: hydrALAZINE 25 MG TABLET PO SCH ×4 (00:11→22:58)
[2021-01-01] MEDS: 0.9 % Sodium Chloride 1,000 ML IVC SCH ×3 (00:14→17:59)
[2021-01-01] MEDS: *HR* Heparin 5,000 UNIT/ML VIAL SQ SCH ×2 (05:34→17:53)
[2021-01-01 07:03] LABS: Hematocrit 38.8 % (37.5-50.1); Hemoglobin 12.4 g/dL (12.9-16.9)
[2021-01-01 07:24] LABS: BUN/Creatinine Ratio 18 (6-26); Blood Urea Nitrogen 19 mg/dL (8-23); eGFR For African Americans > 60 (> 60); eGFR For Non-African Americans > 60 (> 60)
[2021-01-01] MEDS: cloNIDine HCL 0.1 MG TABLET PO SCH ×2 (08:43→17:53)
[2021-01-01] MEDS: Insulin LISPRO 300 UNITS/3 ML VIAL SUBQ SCH ×4 (08:43→20:51)
[2021-01-01] MEDS: Aspirin 81 MG TAB.CHEW PO SCH (08:44)
[2021-01-01] MEDS: predniSONE 5 MG TABLET PO SCH (09:58)
[2021-01-01] MEDS: Budesonide/Formoterol 160/4.5 1 PUFF INH IH SCH ×2 (13:04→20:38)
[2021-01-01] MEDS ORDERED: amLODIPine 5 MG TABLET PO SCH (14:00)
[2021-01-01] MEDS: carvediloL 6.25 MG TABLET PO SCH ×2 (14:21→16:28)
[2021-01-01] MEDS ORDERED: amLODIPine 5 MG TABLET PO ONE (15:57)
[2021-01-01] MEDS ORDERED: hydrALAZINE 25 MG TABLET PO SCH (16:00)
[2021-01-01] MEDS ORDERED: hydrALAZINE 25 MG TABLET PO ONE (16:30)
[2021-01-01] MEDS: Insulin DETEMIR 100 UNIT/ML X5UNITS SUBQ SCH (22:57)
[2021-01-02] MEDS: *HR* Heparin 5,000 UNIT/ML VIAL SQ SCH (05:45)
[2021-01-02] MEDS: 0.9 % Sodium Chloride 1,000 ML IVC SCH (05:45)
[2021-01-02 07:56] LABS: Eosinophils % 2.2 %; Immature Granulocytes % 0.4 % (0-4); Red Cell Distribution Width 13.8 % (11.5-14.5)
[2021-01-02 07:58] LABS: Basophils % 0.2 %; Eosinophils # 0.1 K/mcL (0.0-0.6); Hematocrit 36.2 % (37.5-50.1); Hemoglobin 11.8 g/dL (12.9-16.9); Lymphocytes # 1.1 K/mcL (0.6-4.6); Lymphocytes % 21.6 %; Mean Corpuscular HGB Conc 32.6 g/dL (31.6-35.5); Mean Corpuscular Hemoglobin 30.2 pg (28.0-33.3); Mean Corpuscular Volume 92.6 fL (83.0-100.0); Mean Platelet Volume 10.4 fL (9.4-12.4); Monocytes # 0.5 K/mcL (0.0-1.3); Monocytes % 9.4 %; Neutrophils # 3.4 K/mcL (1.6-8.9); Platelet Count 148 K/mcL (140-400); Red Blood Count 3.91 M/mcL (4.19-5.50); Segmented Neutrophils % 66.2 %; White Blood Count 5.1 K/mcL (4.3-11.1)
[2021-01-02] MEDS: Insulin LISPRO 300 UNITS/3 ML VIAL SUBQ SCH ×2 (07:59→11:55)
[2021-01-02] MEDS: predniSONE 5 MG TABLET PO SCH (08:00)
[2021-01-02] MEDS: hydrALAZINE 25 MG TABLET PO SCH (08:00)
[2021-01-02] MEDS: cloNIDine HCL 0.1 MG TABLET PO SCH (08:00)
[2021-01-02] MEDS: carvediloL 6.25 MG TABLET PO SCH (08:00)
[2021-01-02] MEDS: Aspirin 81 MG TAB.CHEW PO SCH (08:00)
[2021-01-02 08:14] LABS: BUN/Creatinine Ratio 14 (6-26); Blood Urea Nitrogen 13 mg/dL (8-23); Calcium 9.4 mg/dL (8.6-10.3); Carbon Dioxide 24 mEq/L (23-29); Chloride 110 mEq/L (98-107); Glucose 111 mg/dL (70-105); Magnesium 1.8 mg/dL (1.6-2.6); Osmolality,Calculated 295 (280-300); Phosphorous 2.8 mg/dL (2.7-4.5); Potassium 3.4 mEq/L (3.5-5.1); Sodium 142 mEq/L (136-145); eGFR For African Americans > 60 (> 60); eGFR For Non-African Americans > 60 (> 60)
[2021-01-02] MEDS: Budesonide/Formoterol 160/4.5 1 PUFF INH IH SCH (08:19)
[2021-01-02] MEDS ORDERED: amLODIPine 5 MG TABLET PO SCH (09:00)
[2021-01-02] MEDS ORDERED: Isosorbide MONOnitrate (24 HR) 30 MG TAB.ER.24H PO SCH (09:30)
[2021-01-02 11:20] VITALS: BP 174/83
== END 2021-01-02 15:24 | disposition home or self-care (01) | DRG 246 ==
LOC: EMEROOARM 00:51 → 3BNU 00:51 → SUATTDRO 03:13 → 3BNU 03:35 → CDU 01-01 02:41 → 2ANU 01-01 18:31
PROVIDERS: ADMIT Family Medicine; ATTEND Internal Medicine